=== PATIENT | female | born 1980 | race Caucasian/White ===

== ENCOUNTER 2024-10-07 08:29 | Emergency (ER) | payer BC, SELFPAY ==
[2024-10-07 08:31] VITALS: BP 137/89
[2024-10-07 08:48] VITALS: BMI 29.7
[2024-10-07 09:10] LABS: % Basophils 0.4 % (0-2); % Eosinophils 2.3 % (0-6); % Immature Granulocytes 0.4 % (0-0.5); % Lymphocytes 34.9 % (20.5-51.1); % Monocytes 8.3 % (1.7-9.3); % Neutrophils 53.7 % (42.2-75.2); Absolute Eosinophils 0.2 10^3/uL (0-0.7); Absolute Lymphocytes 3.3 10^3/uL (1.2-3.4); Absolute Monocytes 0.8 10^3/uL (0.1-0.6); Absolute Neutrophils 5.1 10^3/uL (1.4-6.5); Hematocrit 34.8 % (37.0-47.0); Hemoglobin 11.3 g/dL (12.0-16.0); Mean Corp Hgb Conc. 32.5 g/dL (33.0-37.0); Mean Corpuscular Hgb 27.4 pg (27.0-31.0); Mean Corpuscular Volume 84.5 fL (81.0-99.0); Mean Platelet Volume 9.1 fL (7.4-10.4); Nucleated Red Blood Cells % 0 %; Platelet Count 348 10^3/uL (130-400); Red Blood Cell Count 4.12 10^6/uL (4.20-5.40); Red Cell Dist. Width 14.2 % (11.5-14.5); White Blood Cell Count 9.5 10^3/uL (4.8-10.8)
[2024-10-07 09:23] LABS: ALT (SGPT) 15 U/L (0-35); AST (SGOT) 18 U/L (14-36); Albumin 3.9 g/dl (3.5-5.0); Alkaline Phosphatase 79 U/L (38-126); Blood Urea Nitrogen 15 mg/dl (7-17); Calcium 9.3 mg/dl (8.4-10.2); Carbon Dioxide 26 mmol/L (22-30); Chloride 105 mmol/L (98-107); Estimated Creatinine Clearance > 125 ml/min; Glucose 107 mg/dl (70-99); Lipase 205 U/L (23-300); Potassium 4.4 mmol/L (3.5-5.1); Sodium 138 mmol/L (135-145); Total Bilirubin 0.4 mg/dl (0.2-1.3); eGFR > 60.00
[2024-10-07 09:34] LABS: Troponin I < 0.012 ng/ml
[2024-10-07 09:40] LABS: Urine Albumin Negative (Neg - Trace); Urine Bilirubin Negative (Negative); Urine Character Clear (Clear); Urine Color Yellow; Urine Glucose Negative (Negative); Urine Ketone Negative (Negative); Urine Leukocyte Negative (Negative); Urine Nitrite Negative (Negative); Urine Occult Blood Negative (Negative); Urine Specific Gravity 1.015 (<1.030); Urine Urobilinogen Negative (Neg - 1+)
[2024-10-07 10:32] LABS: HCG, Serum Qualitative Screen Negative
--- NOTE | 2024-10-07 11:31 | ED.GENMED ---
History of Present Illness
General
Chief Complaint: Abdominal Pain
Time Seen by Provider: 10/07/24 08:48
History of Present Illness
History of Present Illness:
44-year-old female presents to the emergency department for evaluation of right-sided abdominal pain that has been occurring intermittently for the past year or more. She previously felt that her symptoms were secondary to kidney stones however has
been following up with your outpatient neurologist and had a recent CT scan showing a dense stone disease. Episodes previously occurred every several weeks however recently have occurred every day. She states that is excruciating when the pain
begins. No obvious provoking or palliating factors. Not provoked by food.
Review of Systems
Review of Systems
Allergies reviewed?: Yes
All Other Systems: ROS reviewed and negative except as documented in HPI and ROS
Phy Exam
Physical Exam
Physical Exam:
GEN: Well appearing, NAD, WDWN
HEENT: Oral mucosa moist, no scleral icterus
Cardiac: Regular rate
Lung: No respiratory distress, no tachypnea
Abdomen: Soft, grossly nontender
MSK: No gross deformity or injuries
Skin: Good color, no pallor or jaundice, no rashes
Neuro: AO x3, moves all extremities freely
Psych: Calm, cooperative
Course
Orders/Labs/Results
Orders:
Orders
10/07/24 08:39
Urinalysis Reflex To Culture Urgent
Date Specimen was Collected: 10/07/24
Time Specimen was Collected: 08:38
10/07/24 08:58
CMP [Comprehensive Metabolic Panel] Urgent
Complete Blood Count/With Diff Urgent
Lipase Urgent
Troponin I Urgent
10/07/24 09:13
CT Abd/Pel (IV only)-DH only Urgent
Comment:
Reason For Exam: R sided abd pain
10/07/24 09:17
Test Result ONCE
10/07/24 10:00
HCG, Serum Qualitative Screen Urgent
Abnormal Lab Results
10/07/24
08:58
RBC 4.12 L 10^6/uL
(4.20-5.40)
Hgb 11.3 L g/dL
(12.0-16.0)
Hct 34.8 L %
(37.0-47.0)
MCHC 32.5 L g/dL
(33.0-37.0)
Absolute Monos (auto) 0.8 H 10^3/uL
(0.1-0.6)
Glucose 107 H mg/dl
(70-99)
10/07/24 08:58
10/07/24 08:58
Vital Signs
Initial and Last Documented VS:
Initial Vital Signs
Temp Pulse Resp BP Pulse Ox
97.9 F 79 16 137/89 100
10/07/24 08:31 10/07/24 08:31 10/07/24 08:31 10/07/24 08:31 10/07/24 08:31
Last Documented Vital Signs
Temp Pulse Resp BP Pulse Ox
97.9 F 80 18 135/80 99
10/07/24 08:31 10/07/24 11:37 10/07/24 11:37 10/07/24 11:37 10/07/24 11:37
MDM/Problems Addressed
MDM/Problems Addressed:
Labs and CT scan are unremarkable. Considered biliary colic however with lack of discernible cholelithiasis on scan and lack of food-based provocation of pain this is not likely. Also discussed possibility of vascular phenomenon such as SMA
syndrome however given lack of food provocation makes this unlikely. Encouraged outpatient GI follow-up
*Critical Care Note
Total Time (30-74mins, 75-104mins- exclusive of procedures): Not Applicable
ED Attending Note
-
Portions of this chart may have been created with voice recognition software.� Occasional wrong word or��sound alike� substitutions may have occurred due to the inherent limitations of voice recognition software.
Discharge Plan
Departure
Patient Disposition: Home (Routine Discharge)
Date of Disposition: 10/07/24
Time of Disposition: 11:31
Patient with high blood pressure during this ER visit?: No
Discharge Problem:
Right lateral abdominal pain
Instructions: Abdominal Pain
Prescriptions:
No Action
citalopram 20 MG tablet
40 mg PO QPM
hydrocodone-acetaminophen [[place]] 1 EACH tablet
1 ea PO Q6HPRN PRN (Reason: pain) Qty: 30 0RF
Referrals:
Tracy Michaud CRNP [Family Provider] -
Activity Restrictions/Additional Instructions:
The cause of your pain is not apparent at this time. Please continue with your plan to follow-up with gastroenterology for further workup
Interventions
Interventions:
*Risk Screen - Suicide Last Done: 10/07/24 08:36
*General Assessment Last Done: 10/07/24 08:48
*Neglect/Abuse Screening Last Done: 10/07/24 08:48
ED- Fall Risk Assessment Last Done: 10/07/24 08:48
*ED COVID-19 Vaccine History Last Done: 10/07/24 08:48
*Nursing Disposition Last Done: 10/07/24 11:38
ZW-Srvbhg-Qafxeclnqt Assessment Last Done: 10/07/24 08:48
Discharge Date and Time
Discharge Date/Time: 10/07/24 11:38
Print Language: OCCITAN
[2024-10-07 11:37] VITALS: BP 135/80
== END 2024-10-07 11:38 | disposition home or self-care (01) ==
LOC: EMR 08:29
PROVIDERS: Physician Assistant; EMERGENCY PHYSICIAN Emergency Medicine; FAMILY PHYSICIAN Nurse Practitioner Adult Health
DX: R10.9 Unspecified abdominal pain (principal); Z59.48 Other specified lack of adequate food
CPT/HCPCS: 99284; 74177; 80053; 81003; 83690; 84484; 84703; 85025; Q9967

== ENCOUNTER 2025-02-05 13:50 | Emergency (ER) | payer BC, SELFPAY ==
[2025-02-05 14:00] VITALS: BP 124/99
[2025-02-05 14:31] LABS: % Basophils 0.4 % (0-2); % Eosinophils 0.8 % (0-6); % Immature Granulocytes 0.2 % (0-0.5); % Lymphocytes 46.4 % (20.5-51.1); % Monocytes 8.2 % (1.7-9.3); Absolute Eosinophils 0.1 10^3/uL (0-0.7); Absolute Lymphocytes 4.2 10^3/uL (1.2-3.4); Absolute Monocytes 0.7 10^3/uL (0.1-0.6); Hematocrit 33.5 % (37.0-47.0); Hemoglobin 10.5 g/dL (12.0-16.0); Mean Corp Hgb Conc. 31.3 g/dL (33.0-37.0); Mean Corpuscular Hgb 24.4 pg (27.0-31.0); Mean Corpuscular Volume 77.7 fL (81.0-99.0); Nucleated Red Blood Cells % 0 %; Platelet Count 383 10^3/uL (130-400); Red Blood Cell Count 4.31 10^6/uL (4.20-5.40); Red Cell Dist. Width 14.7 % (11.5-14.5)
[2025-02-05 14:54] LABS: HCG, Serum Qualitative Screen Negative
[2025-02-05 14:57] LABS: ALT (SGPT) 14 U/L (0-35); AST (SGOT) 20 U/L (14-36); Albumin 4.4 g/dl (3.5-5.0); Alkaline Phosphatase 89 U/L (38-126); Blood Urea Nitrogen 13 mg/dl (7-17); Calcium 9.4 mg/dl (8.4-10.2); Carbon Dioxide 22 mmol/L (22-30); Chloride 108 mmol/L (98-107); Glucose 96 mg/dl (70-99); Potassium 4.2 mmol/L (3.5-5.1); Sodium 139 mmol/L (135-145); Total Bilirubin 0.6 mg/dl (0.2-1.3); Total Protein 7.6 g/dl (6.3-8.2); eGFR > 60.00
--- NOTE | 2025-02-05 15:20 | ED.GENMED ---
History of Present Illness
General
Chief Complaint: DVT/Possible Blood Clot
Source: patient
Exam Limitations: none
Time Seen by Provider: 02/05/25 15:00
History of Present Illness
History of Present Illness:
45yoF with a history of lung cancer currently in remission, prior DVT no longer on anticoagulation, kidney stones, and anxiety presenting with her for evaluation of muscle spasms. Patient has been having intermittent muscle spasms for
several years. The location seems to migrate. Sometimes the spasms are located in the abdomen, low back, or arms. Her spasms have become more frequent over the past several weeks. She had a spasm in her left inner thigh earlier today which is
unusual. She became concerned that she may have another DVT so came to the ED. Her muscle spasm has resolved but she reports some residual discomfort. She has been seen by her PCP as well as rheumatology for her symptoms but has not received a
formal diagnosis. She is scheduled to see neurology next week.
Phy Exam
General Physical Exam
General Presentation: well appearing and no apparent distress
General Skin: warm and dry
General Habitus: normal
General Mental: alert
ENT Exam
ENT Exam: normocephalic
Pulmonary Exam
Pulmonary Exam: no respiratory distress
Neurological Exam
Neurological Exam: alert
[place] Coma Scale
Eye Opening: Spontaneous
Verbal Response: Oriented
Motor Response: Obeys Commands
GCS Total Score: 15
Musculoskeletal Exam
Musculoskeletal Exam: other (L thigh is normal to inspection. No tenderness to palpation. ROM of L hip/knee intact. 2+ DP pulse.)
Skin Exam
Skin Exam: normal color and warm/dry
Psychiatric Exam
Psychiatric Exam: normal mood/affect
Course
Orders/Labs/Results
Orders:
Orders
02/05/25 13:51
Periph Venous Lwr Ext Left US [US Periph Venous LOWER Ext LT] Urgent
Comment: hx of DVT/PE
Reason For Exam: cramping pain
02/05/25 14:04
Test Result ONCE
02/05/25 14:07
Complete Blood Count/With Diff Urgent
Comprehensive Metabolic Panel Urgent
HCG, Serum Qualitative Screen Urgent
Comment: Notify provider if positive test present
02/05/25 15:32
Methocarbamol 750 mg PO NOW STA
Abnormal Lab Results
02/05/25
14:07
Hgb 10.5 L g/dL
(12.0-16.0)
Hct 33.5 L %
(37.0-47.0)
MCV 77.7 L fL
(81.0-99.0)
MCH 24.4 L pg
(27.0-31.0)
MCHC 31.3 L g/dL
(33.0-37.0)
RDW 14.7 H %
(11.5-14.5)
Absolute Lymphs (auto) 4.2 H 10^3/uL
(1.2-3.4)
Absolute Monos (auto) 0.7 H 10^3/uL
(0.1-0.6)
Chloride 108 H mmol/L
(98-107)
02/05/25 14:07
02/05/25 14:07
Vital Signs
Initial and Last Documented VS:
Initial Vital Signs
Temp Pulse Resp BP Pulse Ox
97.9 F 70 18 124/99 100
02/05/25 14:00 02/05/25 14:00 02/05/25 14:00 02/05/25 14:00 02/05/25 14:00
Last Documented Vital Signs
Temp Pulse Resp BP Pulse Ox
97.9 F 70 18 124/99 100
02/05/25 14:00 02/05/25 14:00 02/05/25 14:00 02/05/25 14:00 02/05/25 14:00
MDM/Problems Addressed
Differential Diagnosis Includes:
45yoF here for L thigh pain. Intermittent muscle spasms x years that is becoming more frequent. Occurred in the L thigh today which is unusual. Hx of DVT no longer on anticoagulation. Now feeling better. VSS. LLE is normal to inspection and
neurovascularly intact. No bony tenderness and ROM is normal. Differential diagnosis includes: muscle spasm, DVT, doubt fracture
Labs and venous duplex obtained in triage. US negative for DVT and labs overall unremarkable. Patient stable for discharge. Will trial Robaxin. She has an appt scheduled with neurology next week for her recurrent spasms.
*Pulse Oximetry
Patient hypoxic: no (100%)
*Critical Care Note
Total Time (30-74mins, 75-104mins- exclusive of procedures): Not Applicable
ED Attending Note
-
Portions of this chart may have been created with voice recognition software.� Occasional wrong word or��sound alike� substitutions may have occurred due to the inherent limitations of voice recognition software.
Discharge Plan
Departure
Patient Disposition: Home (Routine Discharge)
Date of Disposition: 02/05/25
Time of Disposition: 15:22
Patient with high blood pressure during this ER visit?: No
Discharge Problem:
Muscle spasm of left lower extremity
Instructions: Muscle spasms (muscle cramps)
Prescriptions:
New
methocarbamol 750 mg tablet
750 mg PO Q8H PRN (Reason: muscle spasms) Qty: 20 0RF
No Action
citalopram 20 MG tablet
40 mg PO QPM
hydrocodone-acetaminophen [[place]] 1 EACH tablet
1 ea PO Q6HPRN PRN (Reason: pain) Qty: 30 0RF
Activity Restrictions/Additional Instructions:
Take Robaxin as needed for muscle spasms. You may also take ibuprofen and Tylenol as needed.
Please follow-up with your family doctor. Return to the ER with any new or worsening symptoms.
Interventions
Interventions:
*Risk Screen - Suicide Last Done: 02/05/25 14:00
*General Assessment Last Done: 02/05/25 14:00
*Neglect/Abuse Screening Last Done: 02/05/25 15:40
*ED- Fall Risk Assessment Last Done: 02/05/25 15:37
*ED COVID-19 Vaccine History Last Done: 02/05/25 15:37
*Nursing Disposition Last Done: 02/05/25 16:04
ED- Cardiac Assessment Last Done: 02/05/25 15:38
ED- Pulmonary Assessment Last Done: 02/05/25 15:38
ED-Peripheral Vascular Assessment Last Done: 02/05/25 15:39
ED-Skin Assessment Last Done: 02/05/25 15:38
Discharge Date and Time
Discharge Date/Time: 02/05/25 16:05
Print Language: SAMMARINESE
--- NOTE | 2025-02-05 16:03 | PTCARENOTE ---
Pt did not want to wait for med from pharmacy. Pt states she'll pickling solution maker med from her Pharmacy and take that one.
== END 2025-02-05 16:05 | disposition home or self-care (01) ==
LOC: EMR 13:50
PROVIDERS: Emergency Medicine; EMERGENCY PHYSICIAN Emergency Medicine
DX: M62.838 Other muscle spasm (principal); M79.652 Pain in left thigh; Z86.718 Personal history of other venous thrombosis and embolism; Z85.118 Personal history of other malignant neoplasm of bronchus and lung
CPT/HCPCS: 99284; 80053; 84703; 85025; 93971

== ENCOUNTER 2025-03-28 21:31 | Observation (INO) | payer BC, SELFPAY ==
[2025-03-28] VITALS (12 sets, daily range): BP systolic 123–148; BP diastolic 66–108; PULSE 57–82
[2025-03-28 17:29] LABS: Hematocrit 33.7 % (37.0-47.0); Hemoglobin 10.7 g/dL (12.0-16.0); Mean Corp Hgb Conc. 31.8 g/dL (33.0-37.0); Mean Corpuscular Volume 76.8 fL (81.0-99.0); Nucleated Red Blood Cells % 0 %; Platelet Count 348 10^3/uL (130-400); Red Cell Dist. Width 15.7 % (11.5-14.5)
[2025-03-28 17:42] LABS: HCG, Serum Qualitative Screen Negative
[2025-03-28 17:46] LABS: ALT (SGPT) 18 U/L (0-35); AST (SGOT) 23 U/L (14-36); Albumin 4.6 g/dl (3.5-5.0); Alkaline Phosphatase 86 U/L (38-126); Blood Urea Nitrogen 13 mg/dl (7-17); Calcium 9.3 mg/dl (8.4-10.2); Carbon Dioxide 24 mmol/L (22-30); Chloride 107 mmol/L (98-107); Glucose 96 mg/dl (70-99); Potassium 4.0 mmol/L (3.5-5.1); Sodium 139 mmol/L (135-145); Total Protein 7.9 g/dl (6.3-8.2); eGFR > 60.00
--- NOTE | 2025-03-28 18:58 | ED.GENMED ---
History of Present Illness
General
Chief Complaint: Fainting/Passed Out
Source: patient
Exam Limitations: none
Time Seen by Provider: 03/28/25 18:20
Nursing documentation reviewed up to this point in time: agreed with
History of Present Illness
History of Present Illness:
Patient with history of iron deficiency anemia, neuroendocrine tumor requiring lung resection, and anxiety disorder, presents to ED secondary to syncopal episode while talking to her mother this afternoon, in sitting position. Patient unfortunately
has had multiple syncopal episodes in the past. Patient felt as though she may pass out, as she had in the past. Denies preceding chest palpitations or shortness of breath. Patient denies confusion when she. Patient also is on day 2 of her
menstrual cycle, which has been extremely heavy over the past 2 years. In addition, patient reports not feeling well overall for quite some time. Patient admits to having poor diet, as she only eats when she smokes marijuana. Denies fever or
chills. Denies recent illness. Patient's recent blood work had revealed low iron level. Patient's account representative was making arrangements for an outpatient iron infusion, which has not taken place. In addition, patient reports intermittent episodes
of severe abdominal spasm, which comes around randomly. Patient is currently being evaluated by neurologist at [facility] and outpatient MRI of spine has been ordered.
Review of Systems
Review of Systems
Allergies reviewed?: Yes
All Other Systems: ROS reviewed and negative except as documented in HPI and ROS
Constitutional: Reports no symptoms
Respiratory: Reports no symptoms; Denies trouble breathing
Cardiac: Reports syncope; Denies chest pain or palpitations
ABD/GI: Reports abdominal pain; Denies vomiting or diarrhea
: Reports no symptoms
Skin: Reports no symptoms
Neurological: Reports no symptoms
Phy Exam
Physical Exam
Physical Exam:
Physical Exam
General: mild distress, not acutely ill. afebrile
Head: nc/at. eomi
Neck: supple. no meningeal signs.
Heart: s1/s2 regular rate and rhythm
Lungs: no acute respiratory distress. clear bilaterally
Abdomen: normal bowel sounds. not tender.
Neuro: alert and oriented x 3. no focal neurological deficits
Skin: no rash
Psychiatric: well kept. interactive and cooperative
Extremities: no edema. no calf tenderness.
Course
Orders/Labs/Results
Orders:
Orders
03/28/25 Dinner
Regular
At Your Request: Full Participation
Does patient need a safe tray?: No
03/28/25 17:18
Test Result ONCE
03/28/25 17:23
Type+Screen Urgent
Complete Blood Count/With Diff Urgent
Comprehensive Metabolic Panel Urgent
HCG, Serum Qualitative Screen Urgent
03/28/25 17:24
Electrocardiogram (*1) Urgent
Reason for Study: Syncope
EKG- Treatment ONCE
03/28/25 20:52
Admit/Transfer Patient As Directed
Co-Sign Provider:
Level of Care: Observation services
Assign to:: Telemetry
Physician / Group: Gale Andres
Diagnosis: syncope
Reason for Telemetry: Syncope
Date to Stop Telemetry: 03/30/25
Time to Stop Telemetry: 11:00
Code Status As Directed
Resuscitation Status: Full Code
PRN Pain Medication Management As Directed
May give lesser potent ordered pain med per pt: Yes
preference::
Protocol:: Medication orders for pain may be administered in a
manner that supports deferring to patient preference
when the pt is:
- Requesting an ordered lesser potent pain medication.
Least to most potent pain medications are defined
as: acetaminophen < NSAID < tramadol < opioids
(morphine, oxycodone, hydromorphone).
- Requesting a lesser dose of the same medication IF
ORDERED.
- Requesting a less intrusive route of administration
if both routes are prescribed by the provider (PO <
IV).
03/28/25 23:00
Magnesium l-Lactate [Mag-Tab Sr] 84 mg PO HS
03/28/25 23:02
0.9% Sodium Chloride 1000 ml [Nss] 1,000 ml IV 100 mls/hr
Cholecalciferol (Vitamin D3) [VITAMIN D3 (cholecalciferol)] 25 mcg PO HS
Multivitamin [Theragran] 1 tablet PO HS
03/28/25 23:02
Activity As Directed
Activity Level: As Tolerated
Orthostatic Vital Signs As Directed
Orthostatic VS Frequency: BID
Vital Signs As Directed
Frequency: Per unit guidelines
Weight As Directed
Frequency: Once
Comment: on admission
DX Deep Vein Thrombosis Video Routine
03/28/25 23:13
ABO2 Urgent
BBK Wristband Number:
Associate notified that ABO2 has been ordered: [id number]
Date: 03/28/25
Time: 17:55
Environmental Services Manager ID: [id number]
Ferritin Routine
Iron Routine
Magnesium Routine
Phosphorus Routine
Total Iron Binding Routine
Vitamin B12 Routine
03/28/25 23:15
Citalopram [Celexa] 40 mg PO HS
03/29/25 04:07
Basic Metabolic Panel IN AM
Complete Blood Count/No Diff IN AM
03/29/25 18:00
Enoxaparin Sodium [Lovenox] 40 mg SC QPM
03/30/25 11:00
DC Protocol for Telemetry ONCE
Abnormal Lab Results
03/28/25
17:23
Hgb 10.7 L g/dL
(12.0-16.0)
Hct 33.7 L %
(37.0-47.0)
MCV 76.8 L fL
(81.0-99.0)
MCH 24.4 L pg
(27.0-31.0)
MCHC 31.8 L g/dL
(33.0-37.0)
RDW 15.7 H %
(11.5-14.5)
Absolute Lymphs (auto) 4.0 H 10^3/uL
(1.2-3.4)
Absolute Monos (auto) 0.7 H 10^3/uL
(0.1-0.6)
Neutrophils % 41.6 L %
(42.2-75.2)
03/28/25 17:23
03/28/25 17:23
Vital Signs
Initial and Last Documented VS:
Initial Vital Signs
Temp Pulse Resp BP Pulse Ox
98.4 F 84 18 138/102 100
03/28/25 17:14 03/28/25 17:14 03/28/25 17:14 03/28/25 17:14 03/28/25 17:14
Last Documented Vital Signs
Temp Pulse Resp BP Pulse Ox
97.9 F 83 20 141/93 95
03/29/25 12:06 03/29/25 10:45 03/29/25 12:06 03/29/25 10:41 03/29/25 12:06
MDM/Problems Addressed
MDM/Problems Addressed:
Syncope of unknown etiology, although may be contributed by ongoing iron deficiency anemia along with current heavy menstrual cycle. Patient will require further evaluation, as she may be experiencing multiple episodes of syncope at home. In
addition patient complaining of severe intermittent abdominal spasm - ? abdominal seizure.
*Pulse Oximetry
SaO2: 100
Oxygen Mode of Delivery: Room air
Patient hypoxic: no
*EKG
Interpreted by ED Provider?: Yes
EKG Intrepretation Date: 03/28/25
Heart Rate: 65
Rate: normal
Rhythm: sinus
[place]: normal axis
Interval: normal interval
*Critical Care Note
Total Time (30-74mins, 75-104mins- exclusive of procedures): Not Applicable
ED Attending Note
-
Portions of this chart may have been created with voice recognition software.� Occasional wrong word or��sound alike� substitutions may have occurred due to the inherent limitations of voice recognition software.
Discharge Plan
Departure
Patient Disposition: Admit
Date of Disposition: 03/28/25
Time of Disposition: 19:46
Admit to: Telemetry
Presentation/result/management discussed w/ accepting MD/DO: Hospitalist
Discharge Problem:
Syncope, Abdominal spasms, Iron deficiency anemia
Interventions
Interventions:
*Risk Screen - Suicide Last Done: 03/28/25 17:14
*General Assessment Last Done: 03/28/25 17:14
*Neglect/Abuse Screening Last Done: 03/28/25 17:14
*ED COVID-19 Vaccine History Last Done: 03/28/25 22:33
*Nursing Disposition Last Done: 03/28/25 22:39
ED- Cardiac Assessment Last Done: 03/28/25 18:41
ED- Neurological Assessment Last Done: 03/28/25 18:41
Discharge Date and Time
Discharge Date/Time: 03/28/25 22:39
--- NOTE | 2025-03-28 19:56 | HPS.HSE ---
Family Physician
-
Family Physician: MAITE Pederson
Chief Complaint
-
syncope
History of Present Illness
Patient is a 45-year-old female with past medical history significant for iron deficiency anemia, neuroendocrine tumor requiring lung resection, and anxiety disorder presented to [facility] ED for evaluation of syncopal episode. Patient describes a
feeling prior to passing out of feeling extreme fatigue and then she blacks out for a brief second. Today she reports sitting on her bed when this feeling came over her while talking with her mom, she then blacked out and woke up within a second.
She reports she has had previous similar syncopal episodes that happen a few times a year for the last several years. She did have workup 2-3 years ago with no significant findings. She also describes intermittent muscle spasms in abdomen and arms
that is being worked up by Neurology out patient and has scheduled MRI on . She also reports heavy menstrual cycles most recent starting yesterday. Hematology working on scheduling iron infusion for iron deficiency. Denies any fever, chills,
cough, shortness of breath, dizziness, chest pain, palpitations, nausea, vomting, diarrhea, constipation, or urinary symptoms.
Medical History
Past Medical History
Past Medical History: Reports Other
Additional Past Medical History:
iron deficiency anemia
neuroendocrine tumor requiring lung resection
anxiety disorder
Hx DVT/PE
Past Surgical History: Reports Other
Additional Past Surgical History:
RUL lung resection
C5-C6 cervical discectomy and fusion
breast reduction
D&E
Social History
Tobacco: Non-smoker
Alcohol: None
Drug: Marijuana (edibles daily )
Personal:
Living: With Family
Employment: Employed
Family History
Family History: Other (Father: bradycardia with pacer; Brother: tachycardia )
Allergies / Home Medications
Allergies reflects when Allergies were last updated in [facility].
Home Medications with original date entered in [facility]
Allergy/Medication List:
Allergies
Allergy/AdvReac Type Severity Reaction Status Date / Time
meperidine (From Demerol) Allergy mean/nasty Verified 02/05/25 14:00
Home Medications
citalopram 20 mg tablet 40 mg PO HS 08/11/19
cholecalciferol (vitamin D3) 25 mcg (1,000 unit) tablet (Vitamin D3) 25 mcg PO HS 03/28/25
magnesium 250 mg tablet 500 mg PO HS 03/28/25
multivitamin 1 tab PO HS 03/28/25
Review of Systems
-
History Source: Patient
Constitutional: Reports Fatigue; Denies Fever or Chills
EENT: Reports No Symptoms
Respiratory: Denies Cough or Trouble Breathing
Cardiac: Reports Syncope; Denies Chest Pain, Diaphoresis or Palpitations
Abdomen/GI: Denies Abdominal Pain, Nausea, Vomiting, Diarrhea or Constipated
: Reports No Symptoms
Musculoskeletal: Reports Muscle Pain (intermittent muscle spasms ); Denies Edema
Skin: Denies Rash
Neurological: Denies Dizzy, Headache or Weakness
Endocrine: Reports No Symptoms
Hematologic/Lymphatic: Reports Bleeding (heavy menstrual cycle )
Psych: Denies Anxiety
Physical Exam
Vital Signs
Vital Signs
Temp Pulse Resp BP Pulse Ox
98.4 F 61 16 144/76 100
03/28/25 17:14 03/28/25 18:30 03/28/25 18:30 03/28/25 18:24 03/28/25 18:59
Physical Exam
General: Well Developed, Well Nourished, No Apparent Distress, Comfortable, Conversant and Obese
HEENT: NormoCephalic, Moist mucous membranes and Atraumatic
Respiratory: Clear and Non Labored Respirations
Cardiac: S1/S2 and Regular Rhythm; No Murmur, Rub or Gallop
GI: Soft, Non Tender, Non Distended and Normal Bowel Sounds; No Organomegaly
Rectal: Deferred by Provider
Genito-urinary: Deferred by me
Musculoskeletal: No Clubbing, No Cyanosis and No Edema
Skin: Warm and IV/Catheter Site
Neuro: Awake, AO x 3 and Nonfocal/grossly intact
Psych: Calm and Intact Judgment/Insight
Laboratory Results
-
03/28/25 17:23
03/28/25 17:23
Laboratory Results
Total Bilirubin 0.4 mg/dl (0.2-1.3) 03/28/25 17:23
AST 23 U/L (14-36) 03/28/25 17:23
ALT 18 U/L (0-35) 03/28/25 17:23
Alkaline Phosphatase 86 U/L (38-126) 03/28/25 17:23
Data Reviewed
-
Medical Tests (Nuc Med, Echo, EKG etc): Report Reviewed by me (EKG: NORMAL SINUS RHYTHM INCOMPLETE RIGHT BUNDLE BRANCH BLOCK)
Lab Data: Labs Reviewed by me (hgb 10.7, hct 33.7, )
Impression/Plan
-
IMPRESSION/PLAN:
#syncopal episode
hgb 10.7, hct 33.7
EKG: NORMAL SINUS RHYTHM
INCOMPLETE RIGHT BUNDLE BRANCH BLOCK
- Admit to telemetry
- orthostatic VS
- IVF NSS 100cc/hr
#iron deficiency anemia
hgb 10.7, hct 33.7
follows with [facility]
- check iron studies
#neuroendocrine tumor
s/p RUL lung resection
follows with [facility]
#anxiety disorder
- continue citalopram
Code status: full code
DVT prophylaxis: Lovenox sq
--- NOTE | 2025-03-28 20:42 | W.PN.UPDATE ---
Update Note
Progress Note Update
Patient seen in conjunction with MAITE. I agree with her findings on history and physical. I concur with assessment and plan unless stated otherwise.
This is a 45-year-old with past medical history of neuroendocrine tumor status post surgical resection, iron deficiency anemia, history of recurrent syncopal episodes in the past status post electrical surgical evaluation at [place] which was
negative who presented to the emergency department after a syncopal episode in the setting of recurrent episodes of generalized body aches and spasms.
Patient reported that she was sitting down talking to her mother when she felt she was going to have a syncopal episode. She felt heat rising and then suddenly had a shade over her eyes and passed out. This lasted few seconds and then when she
came to she was crying but had no postictal manifestations such as loss of continence of the bladder or bowel. She was not sleepy. She was not confused. She has no prior history of seizures. She denies any new medication changes. She is on.
But denies any diarrhea. She denies nausea or vomiting.
Patient has been having weekly episodes of spasms that she describes as charley horses in her upper and lower extremities.
Most recent outpatient labs showed that serotonin level was negative. TSH was normal. LFTs were normal. Iron indices shows low ferritin low iron and very low iron saturation.
Assessment and plan
45-year-old with history of iron deficiency likely with restless leg spasms who presents with a syncopal episode. She has history of recurrent syncopal episodes with last episode about 9 months ago and has had extensive workup including
electrophysiological evaluation that was negative. Vital signs, labs and ECG are unremarkable.
- Admit to telemetry observation
- Check orthostatic vital signs
- Check divalent iron and Phos levels
- Patient has a pending IV infusion at oncology clinic
- Hydration with IV fluids overnight
- Neurology outpatient follow-up
- Coronary had cardiology evaluation for syncope in the past with negative workup
DVT prophylaxis with SCDs
CODE STATUS�full code
[2025-03-28] MEDS: THERAGRAN 1 TABLET PO (23:22)
[2025-03-28] MEDS: NSS 1000 IV (23:22)
[2025-03-28] MEDS: MAG-TAB SR 84 MG PO (23:22)
[2025-03-28] MEDS: VITAMIN D3 (cholecalciferol) 25 MCG PO (23:22)
[2025-03-28] MEDS: CELEXA 40 MG PO (23:22)
--- NOTE | 2025-03-28 23:41 | PTCARENOTE ---
Received patient from ED. SB on the monitor, HR in the 50s. VSS on room air. Alert and oriented. No pain at this time. Oriented pt to room and plan of care, pt verbalizes understanding. Admission assessment completed. No complaints from pt at this
time, call garcia within reach.
[2025-03-28 23:45] LABS: Iron 42 ug/dl (37-170); Magnesium 2.1 mg/dl (1.6-2.3)
[2025-03-28 23:53] LABS: Total Iron Binding Capacity 508 ug/dl (265-497)
[2025-03-29] VITALS (8 sets, daily range): BP systolic 119–147; BP diastolic 77–93; PULSE 59–74; BMI 27.6
[2025-03-29 00:20] LABS: Ferritin 5.8 ng/ml (6.24-137)
[2025-03-29 00:34] LABS: Vitamin B12 399 pg/ml (239-931)
[2025-03-29 04:28] LABS: Hematocrit 31.1 % (37.0-47.0); Hemoglobin 9.9 g/dL (12.0-16.0); Mean Corp Hgb Conc. 31.8 g/dL (33.0-37.0); Mean Corpuscular Volume 76.6 fL (81.0-99.0); Platelet Count 308 10^3/uL (130-400); Red Cell Dist. Width 15.4 % (11.5-14.5)
[2025-03-29 04:44] LABS: Blood Urea Nitrogen 12 mg/dl (7-17); Calcium 8.7 mg/dl (8.4-10.2); Carbon Dioxide 21 mmol/L (22-30); Chloride 111 mmol/L (98-107); Estimated Creatinine Clearance 105 ml/min; Glucose 103 mg/dl (70-99); Potassium 4.1 mmol/L (3.5-5.1); Sodium 138 mmol/L (135-145); eGFR > 60.00
--- NOTE | 2025-03-29 09:39 | PTCARENOTE ---
Pt is AOx3, no complaints of pain or discomfort. Independent OOB. IVF infusing per orders. SR/SB on tele monitor, VSS. Call garcia within reach.
--- NOTE | 2025-03-29 10:43 | W.PN.HOSP.TC ---
Addendum entered and electronically signed by Carter Smith DO 03/29/25 17:08:
Vasovagal syncope.
Echocardiogram normal.
Not orthostatic.
Medically stable for discharge.
Patient refusing to go home and requesting hematology consult. I explained to her that there is no indication for hematology consult. She is not here for anemia, she is here for syncope. Her anemia appears to be stable and hemoglobin is at
baseline.
I also spoke with cuff runner on-call (Dr. Bigg Garcia) from [facility], and he agrees that there is no indication for hematology consult. She can follow-up in the office within 1 week.
Original Note:
Today's Communication/Plan
-
Echocardiogram
Cardiology consult
Assessment / Plan
Assessment / Plan
Gen-AAOx3, NAD
HEENT-NC, AT, anicteric, clear oral mm
Neck-supple
CV-reg, no M, +S1/S2
Lungs-clear B/L
Abd-soft, NT, ND
Ext-no edema
Musculoskeletal-no cyanosis, clubbing
Skin-warm and dry
Neuro-grossly non-focal
Psych-calm, cooperative
Recurrent syncope -suspect vasovagal given warning symptoms of feeling flushed and lightheaded prior to episode.
Orthostatics are negative. Check echocardiogram. Consult cardiology.
Patient states she was evaluated by electrophysiology 5 years ago and discharged from their care. Reportedly had negative stress test at the time. She is a very poor and limited historian, does not remember details of her prior workups.
Chronic iron deficiency anemia -she is scheduled for iron infusions, follow-up with hematology. Recommend oral iron supplements every other day. Discussed with patient.
Iron panel consistent with iron deficiency. Hemoglobin near baseline.
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 She states she is scheduled for a spinal MRI tomorrow, ordered by her neurologist.
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 Treated with Eliquis for 6 months.
Anxiety disorder
Full code
Anticipated Discharge: Within 24 hours
Subjective/Interval History
-
Date of Service: March 29, 2025
Patient seen and examined. Developed lower abdominal muscle cramps during my exam.
Objective Data
-
Labs:
Laboratory Results
03/29/25
04:07
WBC 6.9
Hgb 9.9 L
Hct 31.1 L
Plt Count 308
Sodium 138
Potassium 4.1
Chloride 111 H
Carbon Dioxide 21 L
BUN 12
Creatinine 0.7
Glucose 103 H
Calcium 8.7
Vital Signs:
Vital Signs
Temp Pulse Resp BP Pulse Ox
98.3 F 54 20 119/85 94
03/29/25 06:49 03/29/25 07:15 03/29/25 06:49 03/29/25 06:54 03/29/25 06:51
Review of Systems
-
History Source: Patient
All other systems: Reviewed and negative
[2025-03-29] MEDS: NSS IV (10:50)
--- NOTE | 2025-03-29 10:55 | PTCARENOTE ---
Pt rang call jose. was upset over muscle spasms in stomach area. Dr Smith aware. Will continue to monitor.
--- NOTE | 2025-03-29 11:10 | CON.CAR ---
Addendum entered and electronically signed by Kim Moseley MD 03/29/25 16:58:
I saw and evaluated the patient. I reviewed the resident�s note and agree with findings and plan as documented in the resident�s note.
45-year-old female with a past medical history of recurrent syncope throughout her life, iron deficiency anemia, anxiety and depression who presented with a syncopal episode. She reports that for many years she has had these episodes, they always
begin with a prodrome of feeling flushed and warm knowing she will likely pass out. No associated chest pain or shortness of breath. No history of exertional syncope. No family history of sudden cardiac . Additionally, she is undergoing
treatment for iron deficiency anemia and was told she needs an iron infusion which is part of the reason she thought she was getting admitted. Currently she is feeling well without complaint.
On exam she has a regular rate and rhythm with a normal S1-S2 no murmurs gallops were appreciated lungs are clear to auscultation bilaterally, no lower extremity edema. EKG tracing from today shows normal sinus rhythm with a incomplete right bundle
branch block and normal QTInterval manual measurement. Echocardiogram was done and further evaluation which was normal.
Overall, syncopal history with recurrent episodes with clear prodromes consistent with a vasovagal in etiology. Also worsening of an iron deficiency state would make these more likely to occur. Recommend treating iron deficiency anemia. We
discussed always listening to her prodromal symptoms. She should lie down or sit down if she is able to as the main risk is trauma from a syncopal episode. She should stay well-hydrated. Compression socks could help.
She should follow-up with her typical hematology team for her iron deficiency anemia.
No further cardiac recommendations. No contraindication to discharging home from a cardiovascular perspective.
Original Note:
Consultation
Consultation Request
Date/Time Consultation Requested: 03/29/25
Date/Time Consultation Performed: 03/29/25
Medical History
-
Chief Complaint: Recurrent syncopal episodes
History of Present Illness:
Patient is a 45-year-old female, with past medical history of anxiety/depression, iron deficiency anemia who presents with complaint of syncopal episode that she had while she was talking on the phone to her mother. She felt warm immediately prior,
and could feel that she was about to have a blackout episode. The episode lasts for a couple of seconds and then she is back to the baseline. Recently she has noticed twitching of her muscles of abdomen and arms in association with it.
She has been having these episodes for many years and attributes them to iron deficiency anemia. She is currently seeing a floor technician Dr. Jean Marie marinelli who was trying to get her iron infusions, but she got her period on Thursday and feels like in
addition to bleeding and being iron deficient she had the episode. She denies any seizures but reports headaches in frontal region on most days. She denies any chest pain, dyspnea, palpitations fluttering in chest, before the episode. Orthostatic
vitals negative. Denies any melena, hematochezia, diarrhea or intolerance of food.
She has not noticed any specific emotional trigger or positional change trigger for the syncope. No relation to exercise.
No past medical history of any thyroid issue, diabetes or adrenal insufficiency. History of neuroendocrine tumor resection 4 to 5 years ago, during the procedure she was noticed to be in bradycardia for which she had an extensive cardiac evaluation
via [place] and there was no cardiac issue identified.
On telemetry, patient has episodes of sinus bradycardia.
Past Medical History
Past Medical History: Other (iron deficiency anemia ,neuroendocrine tumor requiring lung resection ,anxiety disorder, Hx DVT/PE)
Social History
Tobacco: Non-Smoker
Alcohol: None
Drug: Marijuana (daily)
Personal:
Living: With Family
Employment: Employed
Family History
Family History: Other (Father: bradycardia with pacer; Brother: tachycardia)
Allergies / Home Medications
Allergy/AdvReac Type Severity Reaction Status Date / Time
meperidine (From Demerol) Allergy mean/nasty Verified 02/05/25 14:00
�Medication �Instructions �Recorded �Confirmed �Type
citalopram 20 mg tablet 40 mg PO HS 08/11/19 03/28/25 History
cholecalciferol (vitamin D3) 25 25 mcg PO HS 03/28/25 03/28/25 History
mcg (1,000 unit) tablet (Vitamin
D3)
magnesium 250 mg tablet 500 mg PO HS 03/28/25 03/28/25 History
multivitamin 1 tab PO HS 03/28/25 03/28/25 History
Review of Systems
-
All other systems: Negative unless noted
Physical Exam
Vital Signs
Temp Pulse Resp BP Pulse Ox
98.3 F 83 20 141/93 94
03/29/25 06:49 03/29/25 10:45 03/29/25 06:49 03/29/25 10:41 03/29/25 06:51
Lab Results
03/29/25 04:07
03/29/25 04:07
Physical Exam
General: Well Developed, Well Nourished and No Apparent Distress
HEENT: Anicteric and Moist Mucous Membranes
Respiratory: Clear; Negative Wheezes, Crackles or Rhonchi
Cardiac: S1/S2 and Regular Rhythm; Negative Murmur, Rub, Peripheral Edema, Calf Tenderness or JVD
GI: Soft and Non Tender
Musculoskeletal: No Clubbing, No Cyanosis and No Edema
Skin: Warm and Dry
Neuro: Awake and AO x 3
Psych: Calm
Impression / Plan
-
Impression
Patient is a 45-year-old female with past medical history of chronic iron deficiency anemia, presented with recurrent syncopal episodes
Assessment/Plan
#Recurrent syncopal episodes
EKG shows incomplete right bundle branch block, normal QT interval and normal TX interval.
No AV block, VT SVT, sinus pauses and no persistent bradycardia on telemetry
Check echocardiogram for any structural abnormalities, including Atrial myxoma, aortic stenosis, pulmonic stenosis, hocm, LV dysfunction pulmonary pressures
Continue telemetry monitoring, if no arrhythmias identified, can opt for long-term Holter monitor for 30 days at home
Patient only uses marijuana, denies any substance use
Check TSH levels
Bmp suggests against any adrenal insufficiency
Orthostatic vitals negative
Based on patient's activity level and presenting vitals, low threshold for pulmonary embolism
Discussed, finding a safe place and sitting down as soon as realizing an episode is coming up along with crossing legs and making fist of the hand
# Anxiety/depression
On citalopram 40 mg daily
Stable
# Sinus bradycardia
No persistent episodes of bradycardia
No heartbeat less than 40 bpm
Continue telemetry
#History of VTE
-2022, Treated with Eliquis for 6 months.
[2025-03-29 12:31] LABS: TSH 2.93 uIU/ml (0.47-4.68)
--- NOTE | 2025-03-29 14:21 | W.DS.TRANS ---
DC Summary - [employer]
-
Discharge Instructions:
Discharge Diagnosis/Procedures Syncope
Diet Regular
Activity As tolerated
Driving Restrictions As prior to admission
Bathing Restrictions None
Instructions:
Stand-Alone Forms:
Changes to Home Medications: No
Discharge Medications:
DC Medications w/original date entered in [facility]
citalopram 20 mg tablet 40 mg PO HS 08/11/19
cholecalciferol (vitamin D3) 25 mcg (1,000 unit) tablet (Vitamin D3) 25 mcg PO HS 03/28/25
magnesium 250 mg tablet 500 mg PO HS 03/28/25
multivitamin 1 tab PO HS 03/28/25
Home Medication Changes
Pending Results: No
--- NOTE | 2025-03-29 14:39 | CM ---
spoke to pt in room,she is prev indep, lives with her husb in a 1 story home with no steps to enter. she denies any dc planning needs or dme's. plan isf or dc to home when medically stable. OBS letter explained and given to pt.
--- NOTE | 2025-03-29 16:28 | PTCARENOTE ---
Pt very upset about being discharged without seeing hematology with history of low iron levels. Refusing to be discharged, Dr Smith aware. Nursing supervisor contingents aware. Will continue to monitor.
--- NOTE | 2025-03-29 17:36 | PTCARENOTE ---
Pt discharged with all belongings and in stable condition. Ambulated with .
== END 2025-03-29 17:44 | disposition home or self-care (01) ==
LOC: IVU 21:31
PROVIDERS: Emergency Medicine; Nurse Practitioner Family; ADMITTING PHYSICIAN Internal Medicine; ATTENDING PHYSICIAN Hospitalist; CONSULT PHYSICIAN Internal Medicine Cardiovascular Disease; EMERGENCY PHYSICIAN Emergency Medicine; FAMILY PHYSICIAN Nurse Practitioner Adult Health
DX: R55 Syncope and collapse (principal); D50.9 Iron deficiency anemia, unspecified; F41.9 Anxiety disorder, unspecified; F32.A Depression, unspecified; F12.90 Cannabis use, unspecified, uncomplicated; R53.83 Other fatigue; M62.838 Other muscle spasm; R00.1 Bradycardia, unspecified; R23.2 Flushing; I45.10 Unspecified right bundle-branch block; C7A.8 Other malignant neuroendocrine tumors; Z90.2 Acquired absence of lung [part of]; Z86.718 Personal history of other venous thrombosis and embolism; Z86.711 Personal history of pulmonary embolism; Z98.1 Arthrodesis status; Z88.5 Allergy status to narcotic agent; Z82.49 Family history of ischemic heart disease and other diseases of the circulatory system; Z79.899 Other long term (current) drug therapy
CPT/HCPCS: 80048; 80053; 82607; 82728; 83540; 83550; 83735; 84100; 84443; 84703; 85025; 85027; 86850; 86900; 86901; 93005; 93306; 99285; G0378